=== PATIENT | female | born 1955 | race Caucasian/White ===

== ENCOUNTER 2019-10-18 08:36 | Inpatient (IN) ==
[2019-10-18] MEDS ORDERED: ASPIRIN 325 MG TABLET PO STA (08:46)
[2019-10-18] MEDS ORDERED: NITROGLYCERIN SL 0.4 MG TABLET SL PRN (08:46)
[2019-10-18] MEDS ORDERED: NITROGLYCERIN 2% OINT 1 INCH/GM PACK TOP STA (08:46)
[2019-10-18] MEDS ORDERED: ONDANSETRON 4 MG/2 ML VIAL IV STA (08:46)
[2019-10-18] MEDS ORDERED: MORPHINE 4 MG/1 ML VIAL IV STA ×2 (08:46→09:22)
[2019-10-18] MEDS ORDERED: HEPARIN 5,000 UNIT/1 ML VIAL IV ONE (08:46)
[2019-10-18] MEDS ORDERED: ONDANSETRON 4 MG/2 ML VIAL ONE ×2 (08:52→11:18)
[2019-10-18 08:58] LABS: Basophils # 0.1 10*3/uL (0.0-0.2); Basophils % 0.8 % (0.0-0.8); Eosinophils % 0.4 % (0.00-10.9); Hematocrit 38.5 VOL% (35.7-47.0); Hemoglobin 12.5 GM/DL (12.0-16.0); Immature Granulocytes % 0.3 %; Immature Granulocytes Absolute 0.03 #; Lymphocytes # 4.3 10*3/uL (1.4-4.0); Lymphocytes % 40.4 % (21.3-54.2); Mean Corpuscular HGB Conc 32.5 GM/DL (32-36); Mean Corpuscular Volume 89.5 FL (87-102); Mean Platelet Volume 9.6 FL (9.6-12.0); Monocytes % 8.3 % (1.7-12.7); Neutrophils % 49.8 % (38.7-73.9); Platelet Count 318 T/CUMM (130-400); Red Cell Distribution Width 13.9 % (9.3-17.3); White Blood Count 10.6 T/CUMM (4-12)
[2019-10-18] MEDS ORDERED: LIDOCAINE 1% 20 ML VIAL ONE (09:02)
[2019-10-18] MEDS ORDERED: MIDAZOLAM 2 MG/2 ML VIAL ONE (09:13)
[2019-10-18] MEDS ORDERED: fentaNYL 100 MCG/2 ML VIAL ONE (09:14)
[2019-10-18 09:16] LABS: INR 0.9; PT Patient Result 9.9 SECS (9.8-11.9); Partial Thromboplastin Time 23.9 SECS (23.9-33.8)
[2019-10-18] MEDS ORDERED: MAGNESIUM SULF RIDER 2 GM in PREMIX 1 EACH IV PRN (09:19)
[2019-10-18] MEDS ORDERED: MORPHINE 4 MG/1 ML VIAL IV PRN (09:19)
[2019-10-18] MEDS ORDERED: diphenhydrAMINE CAP 25 MG CAPSULE PO PRN (09:19)
[2019-10-18] MEDS ORDERED: ALUMINUM/MAGNES/SIMETH MAX STR 30 ML UDCUP PO PRN (09:19)
[2019-10-18] MEDS ORDERED: guaiFENesin/DM ER 600-30 MG TABLET PO PRN (09:19)
[2019-10-18] MEDS ORDERED: hydrALAZINE 20 MG/1 ML VIAL IV PRN (09:19)
[2019-10-18] MEDS ORDERED: LACTULOSE 20 GM/30 ML UDCUP PO PRN (09:19)
[2019-10-18] MEDS ORDERED: SIMETHICONE CHEW 125 MG TABLET PO PRN (09:19)
[2019-10-18] MEDS ORDERED: ZALEPLON 5 MG CAPSULE PO PRN (09:19)
[2019-10-18] MEDS ORDERED: MAGNESIUM SULF RIDER 4 GM in PREMIX 1 EACH IV PRN (09:19)
[2019-10-18] MEDS ORDERED: CALCIUM CARBONATE CHEW 500 MG TABLET PO PRN (09:19)
[2019-10-18] MEDS ORDERED: POTASSIUM CHLORIDE 20 MEQ TABLET PO PRN (09:19)
[2019-10-18] MEDS ORDERED: BISACODYL 5 MG TABLET PO PRN (09:19)
[2019-10-18] MEDS ORDERED: METOPROLOL TARTRATE 5 MG/5 ML VIAL IV ONE (09:19)
[2019-10-18 09:20] LABS: Albumin 4.2 G/DL (3.4-5.0); Bilirubin,Total 0.5 MG/DL (0.2-1.0); Calcium 9.7 MG/DL (8.5-10.1); Osmolality,Calculated 276.7 MOS/KG (273-304); Total Protein 8.3 G/DL (6.4-8.3)
[2019-10-18] MEDS ORDERED: TIROFIBAN 5,000 MCG/100 ML PREMIX IV ONE (09:25)
[2019-10-18 09:27] LABS: Eosinophils 1 % (0-10); Hypochromasia 1+; Lymphocytes 41 % (20-55); Microcytosis 1+; Segmented Neutrophils 49 % (50-85); Total Cells Counted 100
[2019-10-18 09:29] LABS: Platelet Estimate Normal
[2019-10-18] MEDS ORDERED: TIROFIBAN 5,000 MCG/100 ML PREMIX IV SCH (09:30)
[2019-10-18] MEDS ORDERED: TICAGRELOR 90 MG TABLET ONE (09:31)
[2019-10-18] MEDS: ONDANSETRON 4 MG/2 ML VIAL IV PRN ×2 (11:22→17:42)
[2019-10-18] MEDS: ENOXAPARIN 40 MG/0.4 ML SYRINGE SUBCUT SCH (11:23)
[2019-10-18 12:09] LABS: CKMB % 11.2 %
[2019-10-18] MEDS ORDERED: SODIUM CHLORIDE 0.9% 1,000 ML IV SCH (13:00)
[2019-10-18 13:18] LABS: Risk Ratio 2.65; VLDL CHOLESTEROL 33.4 MG/DL
[2019-10-18] MEDS: carvediloL 6.25 MG TABLET PO SCH ×2 (14:21→21:15)
[2019-10-18 15:31] LABS: CKMB % 11.6 %
[2019-10-18 15:34] LABS: Troponin I 27.6 NG/ML (0.00-0.045)
[2019-10-18 18:30] LABS: CKMB % 11.9 %
[2019-10-18 18:31] LABS: Troponin I 26.1 NG/ML (0.00-0.045)
[2019-10-18] MEDS: TICAGRELOR 90 MG TABLET PO SCH (21:15)
[2019-10-18] MEDS: ROSUVASTATIN 20 MG TABLET PO SCH (21:15)
[2019-10-19 07:17] LABS: Basophils % 0.4 % (0.0-0.8); Eosinophils # 0.1 10*3/uL (0.0-0.87); Eosinophils % 0.5 % (0.00-10.9); Hematocrit 34.5 VOL% (35.7-47.0); Hemoglobin 10.9 GM/DL (12.0-16.0); Immature Granulocytes % 0.3 %; Immature Granulocytes Absolute 0.03 #; Lymphocytes # 2.3 10*3/uL (1.4-4.0); Mean Corpuscular HGB Conc 31.6 GM/DL (32-36); Mean Corpuscular Volume 92.2 FL (87-102); Neutrophils % 68.8 % (38.7-73.9); Platelet Count 274 T/CUMM (130-400); Red Blood Count 3.74 MC/CUMM (3.8-5.5); Red Cell Distribution Width 14.4 % (9.3-17.3); White Blood Count 10.4 T/CUMM (4-12)
[2019-10-19 07:54] LABS: CKMB % 9.4 %; Calcium 8.6 MG/DL (8.5-10.1); Osmolality,Calculated 271.8 MOS/KG (273-304); Thyroid Stimulating Hormone 5.21 uIU/ml (0.358-3.74)
[2019-10-19 07:55] LABS: Troponin I 11.7 NG/ML (0.00-0.045)
[2019-10-19] MEDS: ACETAMINOPHEN 325 MG TABLET PO PRN ×3 (08:06→16:38)
[2019-10-19] MEDS: TICAGRELOR 90 MG TABLET PO SCH ×2 (10:03→20:55)
[2019-10-19] MEDS: PANTOPRAZOLE 40 MG TABLET PO SCH (10:03)
[2019-10-19] MEDS: carvediloL 6.25 MG TABLET PO SCH ×2 (10:03→20:55)
[2019-10-19] MEDS: ENOXAPARIN 40 MG/0.4 ML SYRINGE SUBCUT SCH (10:03)
[2019-10-19] MEDS: ASPIRIN CHEW 81 MG TABLET PO SCH (10:03)
[2019-10-19] MEDS: ROSUVASTATIN 20 MG TABLET PO SCH (20:55)
[2019-10-19] MEDS: ONDANSETRON 4 MG/2 ML VIAL IV PRN (23:36)
[2019-10-20 05:45] LABS: Basophils # 0.1 10*3/uL (0.0-0.2); Basophils % 0.5 % (0.0-0.8); Eosinophils # 0.1 10*3/uL (0.0-0.87); Eosinophils % 0.6 % (0.00-10.9); Hematocrit 32.4 VOL% (35.7-47.0); Hemoglobin 10.4 GM/DL (12.0-16.0); Immature Granulocytes % 0.2 %; Immature Granulocytes Absolute 0.02 #; Lymphocytes # 2.6 10*3/uL (1.4-4.0); Mean Corpuscular HGB Conc 32.1 GM/DL (32-36); Mean Corpuscular Volume 90.8 FL (87-102); Mean Platelet Volume 10.2 FL (9.6-12.0); Neutrophils % 59.7 % (38.7-73.9); Platelet Count 273 T/CUMM (130-400); Red Blood Count 3.57 MC/CUMM (3.8-5.5); Red Cell Distribution Width 14.1 % (9.3-17.3); White Blood Count 9.3 T/CUMM (4-12)
[2019-10-20 06:29] LABS: Calcium 8.7 MG/DL (8.5-10.1); Osmolality,Calculated 273.7 MOS/KG (273-304)
[2019-10-20 06:32] LABS: Troponin I 6.6 NG/ML (0.00-0.045)
[2019-10-20] MEDS ORDERED: FUROSEMIDE 20 MG/2 ML VIAL IV ONE (08:46)
[2019-10-20] MEDS: ENOXAPARIN 40 MG/0.4 ML SYRINGE SUBCUT SCH (09:04)
[2019-10-20] MEDS: ASPIRIN CHEW 81 MG TABLET PO SCH (09:06)
[2019-10-20] MEDS: TICAGRELOR 90 MG TABLET PO SCH ×2 (09:06→20:59)
[2019-10-20] MEDS: PANTOPRAZOLE 40 MG TABLET PO SCH (09:06)
[2019-10-20] MEDS: carvediloL 6.25 MG TABLET PO SCH ×2 (09:06→20:59)
[2019-10-20 10:35] LABS: Apearance,Urine CLEAR (Clear); Bilirubin,Urine Negative (Negative); Blood, Urine Negative (Negative); Glucose,Urine (UA) Negative (Negative); Ketones,Urine Negative (Negative); Mucus,Urine Occasional /LPF (Occasional); Nitrite,Urine Negative (Negative); Protein,Urine Negative; RBC,Urine <1 /HPF (0-4); Squamous Epithelial Cell,Urine Occasional /HPF (0-10); Urine Color Straw (Yellow); Urine Specific Gravity 1.005 (1.001-1.035); Urine Urobilinogen < 2.0 EU/DL (0.2-1.0); WBC,Urine 1 /HPF (0-6)
[2019-10-20] MEDS: ROSUVASTATIN 20 MG TABLET PO SCH (20:59)
[2019-10-21 07:10] LABS: Basophils % 0.5 % (0.0-0.8); Eosinophils # 0.1 10*3/uL (0.0-0.87); Eosinophils % 0.9 % (0.00-10.9); Hematocrit 37.6 VOL% (35.7-47.0); Hemoglobin 11.9 GM/DL (12.0-16.0); Immature Granulocytes % 0.4 %; Immature Granulocytes Absolute 0.03 #; Lymphocytes # 2.4 10*3/uL (1.4-4.0); Lymphocytes % 30.7 % (21.3-54.2); Mean Corpuscular HGB Conc 31.6 GM/DL (32-36); Mean Corpuscular Volume 91.9 FL (87-102); Neutrophils % 57.5 % (38.7-73.9); Platelet Count 338 T/CUMM (130-400); Red Blood Count 4.09 MC/CUMM (3.8-5.5); Red Cell Distribution Width 14.2 % (9.3-17.3); White Blood Count 7.9 T/CUMM (4-12)
[2019-10-21 07:27] LABS: Blood Urea Nitrogen 17 MG/DL (7-18); Calcium 9.5 MG/DL (8.5-10.1); Estimated Glom Filtration Rate 57 ML/MIN; Glucose 95 MG/DL (74-106); Osmolality,Calculated 269.2 MOS/KG (273-304)
[2019-10-21] MEDS: ENOXAPARIN 40 MG/0.4 ML SYRINGE SUBCUT SCH (09:16)
[2019-10-21] MEDS: TICAGRELOR 90 MG TABLET PO SCH (09:17)
[2019-10-21] MEDS: ASPIRIN CHEW 81 MG TABLET PO SCH (09:17)
[2019-10-21] MEDS: carvediloL 6.25 MG TABLET PO SCH (09:17)
[2019-10-21] MEDS: PANTOPRAZOLE 40 MG TABLET PO SCH (09:18)
[2019-10-21 10:57] VITALS: BP 104/53
== END 2019-10-21 11:51 | disposition home or self-care (01) | DRG 247 ==
LOC: N.ED 08:36 → N.EDINP 09:06 → N.ICU 13:03 → N.TELES 10-19 12:49
PROVIDERS: ADMIT Internal Medicine Cardiovascular Disease; ATTEND Internal Medicine Cardiovascular Disease
PROC: CLCCHCL (ICD-10-PCS; 2019-10-18 10:45)